=== PATIENT | female | born 1965 | race Caucasian/White ===

== ENCOUNTER 2017-03-23 19:18 | Emergency (ER) | payer BC ==
[~2017-03-23] VITALS: Ht 162.6 cm; Wt 76.8 kg
[2017-03-23] MEDS ORDERED: PERCOCET 5/31 TABLET PO (20:34)
[2017-03-23] MEDS ORDERED: KEFLEX500 MG PO (20:34)
[2017-03-23 21:02] VITALS: BP 124/94
== END 2017-03-23 21:02 | disposition home or self-care (01) ==
LOC: EME 19:18
DX: S61.012A Laceration without foreign body of left thumb without damage to nail, initial encounter (principal); S66.222A Laceration of extensor muscle, fascia and tendon of left thumb at wrist and hand level, initial encounter; W27.2XXA Contact with scissors, initial encounter; Z23 Encounter for immunization; Z85.820 Personal history of malignant melanoma of skin
CPT/HCPCS: 73140; 99281; 99284; S0020